=== PATIENT | female | born 1935 | race Native Hawaiian/Other Pacific Islander ===

== ENCOUNTER 2017-01-11 09:04 | Day surgery (SDC) | payer OTHER, MEDICARE | END 2017-01-11 11:10 | disposition home or self-care (01) | LOC: OR 09:04 | PROC: 08RJ3JZ Replacement of Right Lens with Synthetic Substitute, Percutaneous Approach (ICD-10-PCS; principal; 2017-01-11) | DX: H25.811 Combined forms of age-related cataract, right eye (principal) | CPT/HCPCS: 66984; V2632 ==

== ENCOUNTER 2017-02-15 09:01 | Day surgery (SDC) | payer OTHER, MEDICARE | END 2017-02-15 11:55 | disposition home or self-care (01) | LOC: OR 09:01 | PROC: 08RK3JZ Replacement of Left Lens with Synthetic Substitute, Percutaneous Approach (ICD-10-PCS; principal; 2017-02-15) | DX: H25.812 Combined forms of age-related cataract, left eye (principal) | CPT/HCPCS: 66984; V2632 ==